=== PATIENT | female | born 1960 | race American Indian/Alaskan Native ===

== ENCOUNTER 2017-01-17 18:48 | Emergency (ER) | payer MEDICARE, OTHER ==
[2017-01-18 00:30] VITALS: BP 189/98
[2017-01-18] MEDS ORDERED: XYLOCAINE 1% MPF 5 mL INFILTRATI ONE (00:53)
[2017-01-18] MEDS ORDERED: ROCEPHIN IM ONE (00:53)
[2017-01-18] MEDS ORDERED: BOOSTRIX IM ONE (00:53)
[2017-01-18] MEDS ORDERED: TYLENOL PO ONE (00:53)
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
--- NOTE | 2017-01-18 01:25 | XRay Report ---
FINAL REPORT PROCEDURE: XR HAND 3 RT TECHNIQUE: RIGHT hand radiographs, AP, lateral, and oblique views. CPT 35839-LS HISTORY: dog bite with swelling COMPARISON: No prior studies are available for comparison. FINDINGS: Fracture (s) and/or Dislocation(s): None . Alignment: Normal . Joint space(s): Mild narrowing of the joint spaces.. Soft tissues: Normal . Bone mineralization: Normal . Foreign bodies: None . IMPRESSION: No evidence of acute fracture or dislocation. Mild arthritis..
== END 2017-01-18 02:21 | disposition home or self-care (01) ==
LOC: ED 18:48
DX: S61.451A Open bite of right hand, initial encounter (principal); S61.452A Open bite of left hand, initial encounter; S51.812A Laceration without foreign body of left forearm, initial encounter; S51.811A Laceration without foreign body of right forearm, initial encounter; I10 Essential (primary) hypertension; E11.9 Type 2 diabetes mellitus without complications; Z85.3 Personal history of malignant neoplasm of breast; M19.90 Unspecified osteoarthritis, unspecified site; Z88.5 Allergy status to narcotic agent; Z88.6 Allergy status to analgesic agent; W54.0XXA Bitten by dog, initial encounter; Y93.89 Activity, other specified; Y92.89 Other specified places as the place of occurrence of the external cause; Y99.8 Other external cause status
CPT/HCPCS: 73130; 90471; 90715; 96372; 99283; J0696

== ENCOUNTER 2018-05-07 13:38 | Outpatient (CLI) | payer MEDICARE ==
[2018-05-07] MEDS ORDERED: PROVENTIL IH ONE (14:58)
[2018-05-07 15:43] LABS: Hematocrit 37.9 % (30.3-42.9); Hemoglobin 12.9 gm/dl (10.1-14.3); Mean Corpuscular HGB Conc 34 % (30-34); Mean Corpuscular Hemoglobin 28 pg (28-32); Mean Corpuscular Volume 82 fl (79-97); Platelet Count 275 K/mm3 (140-440); Red Blood Count 4.61 M/mm3 (3.65-5.03); Red Cell Distribution Width 15.8 % (13.2-15.2)
[2018-05-07 15:59] LABS: Alanine Aminotransferase 14 units/L (7-56); Albumin 4.2 g/dL (3.9-5); BUN/Creatinine Ratio 19; Blood Urea Nitrogen 13 mg/dL (7-17); Chol/HDL Ratio 3.06 %; HDL Cholesterol 73 mg/dL (40-59); Hemolysis Index 37; LDL Cholesterol,Direct 157 mg/dL (50-130)
--- NOTE | 2018-05-08 09:38 | Pulmonary Function Test ---
SPIROMETRY: FVC 2.82 liters, which is 97% of the predicted. FEV1 is 2.22 liters, which is 96% of the predicted. FEV1/FVC ratio is 79. Flow volume loop: FEF 25-75% is 1.98 liters per second, which is 86% of predicted. MVV is 75% of the predicted. Lung volumes, TLC 4.49 liters, which is 85% of the predicted and DLCO is 66% of the predicted. IMPRESSION: Normal pulmonary function test except slight decrease in DLCO. JOB# [id number] EMMANUEL/JUSTIN
== END 2018-05-07 13:39 | disposition home or self-care (01) ==
LOC: PF 13:38
PROVIDERS: ATTEND Internal Medicine
DX: J41.0 Simple chronic bronchitis (principal); E78.00 Pure hypercholesterolemia, unspecified; I10 Essential (primary) hypertension; M10.9 Gout, unspecified; E66.9 Obesity, unspecified; Z90.12 Acquired absence of left breast and nipple; Z88.5 Allergy status to narcotic agent; Z88.6 Allergy status to analgesic agent
CPT/HCPCS: 36415; 36600; 80053; 80061; 82803; 84436; 84443; 85027; 94060; 94640; 94726; 94729